=== PATIENT | female | born 1940 | race Caucasian/White ===

== ENCOUNTER 2021-01-28 17:08 | Emergency (ER) | payer MEDICARE ==
[~2021-01-28] VITALS: Ht 165.1 cm; Wt 75.8 kg
[2021-01-28] MEDS ORDERED: HYDROCHLOROTH12.5 MG PO (17:28)
[2021-01-28] MEDS ORDERED: NORTRIPTYLINE H50 MG PO (17:29)
[2021-01-28] MEDS ORDERED: PROPRANOLOL HCL20 MG PO (17:29)
[2021-01-28] MEDS ORDERED: ESTRACE0.5 MG PO (17:30)
[2021-01-28] MEDS ORDERED: FLONASE ALLERG9.9 ML NAS (17:30)
[2021-01-28] MEDS ORDERED: NEURONTIN100 MG PO (17:43)
[2021-01-28] MEDS ORDERED: HYDROCODON-ACE1 EA10 PO (17:44)
== END 2021-01-28 19:15 | disposition home or self-care (01) ==
LOC: ED 17:08
DX: S80.02XA Contusion of left knee, initial encounter (principal); S80.01XA Contusion of right knee, initial encounter; S09.90XA Unspecified injury of head, initial encounter; S63.501A Unspecified sprain of right wrist, initial encounter; W10.1XXA Fall (on)(from) sidewalk curb, initial encounter; I10 Essential (primary) hypertension; G43.909 Migraine, unspecified, not intractable, without status migrainosus; G62.9 Polyneuropathy, unspecified; Z88.0 Allergy status to penicillin; Z88.1 Allergy status to other antibiotic agents; Z79.84 Long term (current) use of oral hypoglycemic drugs; Z79.899 Other long term (current) drug therapy
CPT/HCPCS: 70450; 71101; 73110; 73560; 99284-25